=== PATIENT | male | born 1935 | race Caucasian/White ===

== ENCOUNTER → 2020-02-25 11:42 | Outpatient (CLI) | payer MEDICARE ==
[2020-02-25 12:50] LABS: BILIRUBIN NEGATIVE (NEGATIVE); GLUCOSE NEGATIVE (NEGATIVE); KETONE NEGATIVE (NEGATIVE); NITRITE NEGATIVE (NEGATIVE); SPECIFIC GRAVITY 1.005 (1.005-1.020); UROBILINOGEN NORMAL (NORMAL)
== END | disposition home or self-care (01) ==
LOC: D.LABREF 11:42
PROVIDERS: ATTEND Internal Medicine
DX: R30.0 Dysuria (principal)